=== PATIENT | male | born 1990 | race Caucasian/White ===

== ENCOUNTER 2022-10-22 12:46 | Inpatient (IN) | payer MEDICAID ==
[~2022-10-22] VITALS: Ht 167.6 cm; Wt 61.7 kg
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
--- NOTE | 2022-10-22 13:15 | NUR ---
ACCUCHECK 388
[2022-10-22] MEDS ORDERED: IV NS 0.9% 1,000 ML IV ONE (13:30)
[2022-10-22 13:35] LABS: BASOPHILS % (AUTO) 0.2 % (0.0-2.0); HEMATOCRIT 47 % (39-51); HEMOGLOBIN 15.9 g/dL (13.5-17.5); LYMPHOCYTES # (AUTO) 1.6 K/uL (0.8-4.8); LYMPHOCYTES % (AUTO) 9.1 % (20.0-44.0); MEAN CORPUSCULAR HGB CONC 34 g/dl (31.0-36.0); MEAN CORPUSCULAR VOLUME 92 fL (80-96); MONOCYTES # (AUTO) 0.5 K/uL (0.1-1.30); MONOCYTES % (AUTO) 3.1 % (2.0-12.0); NEUTROPHILS # (AUTO) 15.2 K/uL (1.8-8.9); NEUTROPHILS % (AUTO) 87.6 % (43.0-81.0); PLATELET COUNT (AUTO) 440 K/uL (150-450); RED BLOOD CELL COUNT(AUTO) 5.13 MIL/uL (4.5-6.0); WHITE BLOOD COUNT (AUTO) 17.3 K/uL (4.3-11.0)
[2022-10-22 13:49] LABS: ALANINE AMINOTRANSFERASE 49 U/L (12-78); ALBUMIN 4.4 g/dL (3.4-5.0); ALCOHOL, BLOOD < 3 mg/dL (0-10); ALKALINE PHOSPHATASE 115 U/L (46-116); ASPARTATE AMINOTRANSFERASE 19 U/L (15-37); BILIRUBIN,TOTAL 0.8 mg/dL (0.2-1.0); CALCIUM, SERUM 9.6 mg/dL (8.5-10.1); CHLORIDE 98 mmol/L (98-107); GLUCOSE 397 mg/dL (74-106); POTASSIUM 3.5 mmol/L (3.5-5.1); SODIUM SERUM 138 mmol/L (136-145); TOTAL PROTEIN, SERUM 8.9 g/dL (6.4-8.2); UREA NITROGEN, BLOOD 21 mg/dL (7-18)
[2022-10-22 13:56] LABS: CARBON DIOXIDE 6 mmol/L (21-32)
[2022-10-22] MEDS ORDERED: IV PREMIX NS +20MEQ KCL 1 L IV PRN (14:30)
[2022-10-22] MEDS ORDERED: INSU100I26 SQ (14:46)
[2022-10-22] MEDS ORDERED: INSU100V27 SQ (14:46)
--- NOTE | 2022-10-22 14:56 | NUR ---
CALLED PHARM FOR MEDS
[2022-10-22 14:58] LABS: BILIRUBIN,URINE NEGATIVE (NEGATIVE); COLOR,URINE YELLOW (YELLOW); LEUKOCYTE ESTERASE ,URINE NEGATIVE (NEGATIVE); NITRITE, URINE NEGATIVE (NEGATIVE); PROTEIN,URINE 1+ mg/dl (NEGATIVE); UGLUCOSE 2+ mg/dL (NEGATIVE); UROBILINOGEN,URINE 0.2 EU/dL (0.2)
[2022-10-22] MEDS ORDERED: INSULIN REGULAR, HUMAN 100 UNITS in IV NS 0.9% 100 ML IV PRN ×2 (15:00)
[2022-10-22 15:05] LABS: ABG BASE EXCESS -21.6 mmol/L; ABG OXYGEN SATURATION 97.7 % (92.0-98.5); ABG PCO2 11.2 mmHg (35.0-45.0); ABG PH 7.169 (7.350-7.450); COHb 0.7 % (0.5-1.5); MetHb 0.4 % (0.0-1.5); O2Hb 96.6 % (94.0-97.0); SITE, ABG Right Brachial; VENT MODE, BG Room Air
--- NOTE | 2022-10-22 15:18 | NUR ---
MOVE PACKET SUBMITTED, NURSING RECORD MAKER MADE AWARE PT NEEDS ICU BED
[2022-10-22 15:32] LABS: CALCIUM, SERUM 8.8 mg/dL (8.5-10.1); CREATININE 1.1 mg/dL (0.6-1.3); POTASSIUM 4.3 mmol/L (3.5-5.1)
[2022-10-22 15:35] LABS: MAGNESIUM 2.1 mg/dL (1.8-2.4); PHOSPHORUS 4.5 mg/dL (2.5-4.9)
[2022-10-22 15:36] LABS: BACTERIA,URINE None seen /HPF (None Seen); MUCUS,URINE Few /LPF (None Seen); RBC,URINE 0-2 /HPF (0-2); SQUAMOUS EPITHELIAL CELL,UR None Seen /HPF (None Seen); WBC,URINE NONE SEEN /HPF (0-3)
[2022-10-22] MEDS: INS (REG) DRIP 100 U/100 ML NS IV PRN ×4 (15:59→21:55)
--- NOTE | 2022-10-22 16:15 | NUR ---
[facility] - [phone]
[2022-10-22 16:40] LABS: CALCIUM, SERUM 8.8 mg/dL (8.5-10.1); CREATININE 1.2 mg/dL (0.6-1.3); POTASSIUM 4.4 mmol/L (3.5-5.1)
[2022-10-22 16:44] LABS: MAGNESIUM 2.1 mg/dL (1.8-2.4); PHOSPHORUS 4.4 mg/dL (2.5-4.9)
--- NOTE | 2022-10-22 16:44 | NUR ---
CO2 7.0, AWARE
[2022-10-22] MEDS ORDERED: HYDROCODONE/APAP 5/325MG TABLET PO PRN (17:30)
[2022-10-22] MEDS ORDERED: ACETAMINOPHEN 325 MG TABLET PO PRN (17:30)
[2022-10-22] MEDS ORDERED: MAGNESIUM HYDROXIDE 30 ML UDC PO PRN (17:30)
[2022-10-22] MEDS ORDERED: Z GUARD REMEDY 4 OZ OINT TP PRN (17:30)
[2022-10-22] MEDS ORDERED: ONDANSETRON HCL/PF 4 MG/2 ML VIAL IVP PRN (17:30)
[2022-10-22] MEDS ORDERED: ZOLPIDEM TARTRATE 5 MG TABLET PO PRN (17:30)
[2022-10-22] MEDS ORDERED: MAG HYDROX/AL HYDROX/SIMETH 30 ML UDC PO PRN (17:30)
--- NOTE | 2022-10-22 18:34 | NUR ---
URINE SAMPLE OBTAINED
[2022-10-22 19:04] LABS: CREATININE 1.1 mg/dL (0.6-1.3); MAGNESIUM 2.4 mg/dL (1.8-2.4); PHOSPHORUS 3.7 mg/dL (2.5-4.9); POTASSIUM 4.2 mmol/L (3.5-5.1)
--- NOTE | 2022-10-22 19:36 | NUR ---
CO2 6.0,
[2022-10-22] MEDS: BLOOD SUGAR DIAGNOSTIC 1 EACH STRIP IN SCH ×4 (20:28→23:35)
--- NOTE | 2022-10-22 20:28 | NUR ---
Blood Glucose: 223
--- NOTE | 2022-10-22 20:36 | NUR ---
FATHER (JOHAN AKBAR) [phone]. CALL FOR UPDATES
[2022-10-22 20:42] LABS: CALCIUM, SERUM 9.1 mg/dL (8.5-10.1); CREATININE 1.1 mg/dL (0.6-1.3)
--- NOTE | 2022-10-22 20:43 | NUR ---
CO2 8.0,
--- NOTE | 2022-10-22 21:26 | NUR ---
BLOOD GLUCOSE: 192
--- NOTE | 2022-10-22 21:49 | NUR ---
ELEAZAR NARANJO MADE AWARE ABOUT THE LATEST SUGAR. HE ORDERED TO ADJUST THE RATE OF INSULIN AT 3U/HR. AND START 0.45%1L AT 150CC/HR.
[2022-10-22] MEDS: IV 1/2NS 1000 ML 1,000 ML IV PRN ×2 (22:02→22:03)
[2022-10-22] MEDS ORDERED: ENOXAPARIN SODIUM 40 MG/0.4 ML DISP.SYRIN SQ ONE (22:19)
[2022-10-22] MEDS: ENOXAPARIN SODIUM 40 MG/0.4 ML DISP.SYRIN SQ SCH (22:25)
--- NOTE | 2022-10-22 22:33 | NUR ---
BLOOD GLUCOSE: 186
--- NOTE | 2022-10-22 22:36 | NUR ---
ELEAZAR NARANJO MADE AWARE, MAINTAIN INSULIN RATE AT 3U/HR.
--- NOTE | 2022-10-22 23:35 | NUR ---
BLOOD GLUCOSE: 182
[2022-10-23] VITALS (22 sets, daily range): BP systolic 115–139; BP diastolic 64–86; TEMP 98.2–98.3; O2SAT 100
--- NOTE | 2022-10-23 00:26 | NUR ---
ICU ROOM 262
[2022-10-23] MEDS: BLOOD SUGAR DIAGNOSTIC 1 EACH STRIP IN SCH ×20 (00:33→20:59)
--- NOTE | 2022-10-23 00:33 | NUR ---
BLOOD GLUCOSE: 192
[2022-10-23 00:37] LABS: CALCIUM, SERUM 9.1 mg/dL (8.5-10.1)
--- NOTE | 2022-10-23 00:54 | NUR ---
CO2 9.0,
--- NOTE | 2022-10-23 01:25 | NUR ---
REPORT GIVEN TO PIA JAY (ICU)
--- NOTE | 2022-10-23 01:28 | NUR ---
BLOOD GLUCOSE : 213mg/dl
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
--- NOTE | 2022-10-23 02:09 | NUR ---
TRANSFERRED TO ICU VIA ACLS PROTOCOL
[2022-10-23] MEDS: INSULIN REGULAR, HUMAN 100 UNIT in IV NS 0.9% 99 ML IV PRN ×4 (02:26→14:48)
[2022-10-23] MEDS: IV 1/2NS 1000 ML 1,000 ML IV PRN (02:36)
[2022-10-23 05:27] LABS: BASOPHILS % (AUTO) 0.2 % (0.0-2.0); HEMATOCRIT 33 % (39-51); HEMOGLOBIN 11.1 g/dL (13.5-17.5); LYMPHOCYTES # (AUTO) 1.8 K/uL (0.8-4.8); LYMPHOCYTES % (AUTO) 15.6 % (20.0-44.0); MEAN CORPUSCULAR HGB CONC 34 g/dl (31.0-36.0); MEAN CORPUSCULAR VOLUME 92 fL (80-96); MONOCYTES # (AUTO) 0.8 K/uL (0.1-1.30); MONOCYTES % (AUTO) 7.4 % (2.0-12.0); NEUTROPHILS # (AUTO) 8.7 K/uL (1.8-8.9); NEUTROPHILS % (AUTO) 76.8 % (43.0-81.0); PLATELET COUNT (AUTO) 280 K/uL (150-450); RED BLOOD CELL COUNT(AUTO) 3.57 MIL/uL (4.5-6.0); WHITE BLOOD COUNT (AUTO) 11.4 K/uL (4.3-11.0)
[2022-10-23 05:37] LABS: CREATININE 0.5 mg/dL (0.6-1.3); PHOSPHORUS 1.2 mg/dL (2.5-4.9)
[2022-10-23 05:47] LABS: CALCIUM, SERUM 5.4 mg/dL (8.5-10.1); POTASSIUM 2.2 mmol/L (3.5-5.1)
[2022-10-23 05:48] LABS: MAGNESIUM 1.2 mg/dL (1.8-2.4)
--- NOTE | 2022-10-23 06:00 | NUR ---
RN NOTES NOTIFIED DNP ROSARIO NARANJO REGARDING LATEST POTASSIUM- 2.2, SODIUM- 121, MAGNESIUM- 1,2, PHOSPHORUS- 1.2 WITH NEW ORDER KDUR 40 MEQ PO NOW THE REPEAT KDUR 40 MEQ PO AFETR 4 HRS, POTASSIUM 40MEQ IV NOW, MAGNESIUM 2G IV NOW, 2 PACK NEUTRA PHOS, CHANGE IVF TO D5NS @ 150 ML/HR, START DIET CCHO NOTED AND CARRIED OUT.
[2022-10-23] MEDS ORDERED: POTASSIUM CHLORIDE 20 MEQ TAB.PRT.SR PO ONE (06:30)
[2022-10-23] MEDS: POTASSIUM CHLORIDE 20 MEQ TAB.PRT.SR PO SCH ×2 (06:30→11:09)
[2022-10-23] MEDS: Magnesium 1GM/D5W 100ML PREMIX 100 ML IV SCH ×2 (06:48→07:48)
[2022-10-23] MEDS: POTASSIUM CL. PREMIX PERIPHER. 50 ML IV SCH ×7 (06:49→23:20)
[2022-10-23] MEDS ORDERED: NEUTRA PHOS 1 POWD.PACKET PO ONE (07:00)
[2022-10-23] MEDS: IV D5/ 0.9% NACL 1,000 ML IV PRN ×3 (07:02→18:40)
--- NOTE | 2022-10-23 07:10 | NUR ---
ICU OPENING NOTE: RECEIVED PT IN BED. SLEEPING BUT EASILY AROUSABLE. ABLE TO MAKE NEEDS KNOWN. NO RESP DISTRESS NOTED. ON 2LPM VIA NC. ON INSULIN DRIP. BS CHECK Q1H. NO INFILTRATION NOTED. ON KCL AND MG SUPPLEMENT VIA. RFA 18G AND LAC 20G . PATENT AND INTACT. BED KEPT LOW AND LOCK FOR SAFETY, CALL LIGHT WITHIN REACH.
--- NOTE | 2022-10-23 07:49 | NUR ---
RN/ICU-KDUR 40 MEQ PO DOSE AT 0630 NOT GIVEN, THIS IS A DUPLICATE ORDER, DOSE WAS ALREADY GIVEN. TO BE REPEATED AT 1030(KDUR 40 MEQ PO)
[2022-10-23] MEDS: NICOTINE PATCH (14MG) 14 MG PATCH.TD24 TD SCH (08:39)
[2022-10-23] MEDS: PANTOPRAZOLE 40 MG VIAL IV SCH (08:39)
[2022-10-23 09:30] LABS: CALCIUM, SERUM 8.4 mg/dL (8.5-10.1); CREATININE 0.8 mg/dL (0.6-1.3); POTASSIUM 3.4 mmol/L (3.5-5.1)
--- NOTE | 2022-10-23 10:25 | NUR ---
HORTICULTURAL FARMWORKER NOTE: DR. LANCE AT BEDSIDE.
--- NOTE | 2022-10-23 14:25 | NUR ---
FINANCIAL INSTITUTION PRESIDENT NOTE: PRBC GIVEN ORDERED. 2RN VERIFICATION CHECKED ORDERED VIA DIALYSIS.
--- NOTE | 2022-10-23 15:52 | NUR ---
JOHAN ([facility]) [phone]
[2022-10-23] MEDS ORDERED: GLUCERNA 1.2 1,000 ML BOTTLE NG PRN (16:30)
[2022-10-23 18:13] LABS: CALCIUM, SERUM 8.2 mg/dL (8.5-10.1); CREATININE 0.5 mg/dL (0.6-1.3); POTASSIUM 2.9 mmol/L (3.5-5.1)
--- NOTE | 2022-10-23 19:10 | NUR ---
RN OPENING NOTES RECEIVED PATIENT ON BED, AWAKE ALERT AND VERBALLY RESPONSIVE, FAMILY MEMBER AT BEDSIDE. ON NASAL CANULA @ 2LPM SATING AT 100%. RESPIRATORY EVEN AND UNLABORED, NO SOB NOTED. AFEBRILE, NO S/S OF DISTRESS NOTED. NOTED WITH LEFT HAND # 20, RAC #18 PERIPHERAL LINE , FLUSHED WITH NS, NO S/S OF INFILTRATION NOTED. RUNNING WITH D5NS @ 150 ML/HR. INSULIN DRIP @ 2.87 UNIT/HR. ALL SAFETY PRECAUTION PROVIDED. BED IN LOWEST POSITION LOCKED. CALL LIGHT WITH IN REACH.
--- NOTE | 2022-10-23 19:11 | NUR ---
ROLLER MECHANIC CLOSING NOTE: PT IN BED. SLEEPING BUT EASILY AROUSABLE TO VERBAL AND TACTILE STIMULI. PT AOX4. ON 2LPM VIA N/C. 02SAT 100%. RFA 18G AND LAC 20G PATENT AND INTACT. ON INSULIN DRIP PER POLICY. NEEDS ATTENDED PROMPTLY, CALL LIGHT WITHIN REACH. BED KEPT LOW AND LOCK FOR SAFETY AND CONCERN.
[2022-10-23 20:29] LABS: CALCIUM, SERUM 8.1 mg/dL (8.5-10.1); CREATININE 0.6 mg/dL (0.6-1.3)
[2022-10-23 20:31] LABS: POTASSIUM 2.8 mmol/L (3.5-5.1)
[2022-10-23] MEDS ORDERED: DEXTROSE 50%-WATER 50 ML DISP.SYRIN IV PRN (21:00)
--- NOTE | 2022-10-23 21:00 | NUR ---
RN NOTES NOTIFIED DNP ROSARIO NARANJO, REGARDING LATEST ANION GAP- 13 AND POTASSIUM - 2.8 WITH NEW ORDER DC INSULIN DRIP, START ACHS MODERATE SLIDING SCALE, LANTUS 12 UNITS QHS, CHANGED IVF TO NS @ 75ML/HR AND REPLACED POTASSIUM WITH 80 MEQ IV NOTED AND CARRIED OUT
[2022-10-23] MEDS: IV NS 0.9% 1,000 ML IV PRN (21:15)
[2022-10-23] MEDS: ENOXAPARIN SODIUM 40 MG/0.4 ML DISP.SYRIN SQ SCH (21:25)
[2022-10-23] MEDS ORDERED: INSULIN GLARGINE, 100 UNIT/ML CARTRIDGE SQ SCH (22:00)
[2022-10-23] MEDS: BLOOD SUGAR DIAGNOSTIC 1 EACH STRIP VI SCH (22:32)
[2022-10-23] MEDS: *INSULIN REGULAR(HUMULIN R)HUM 100 UNIT/ML VIAL SQ PRN (22:35)
[2022-10-24] VITALS (15 sets, daily range): BP systolic 105–130; BP diastolic 56–82; TEMP 98.1–99.5; O2SAT 98–100
[2022-10-24] MEDS: POTASSIUM CL. PREMIX PERIPHER. 50 ML IV SCH ×7 (00:24→23:04)
--- NOTE | 2022-10-24 03:46 | NUR ---
RN NOTES NOTED WITH NAUSEA AND VOMOTING, ZOFRAN 4MG IV GIVEN.
[2022-10-24 04:39] LABS: BASOPHILS % (AUTO) 0.5 % (0.0-2.0); HEMATOCRIT 40 % (39-51); HEMOGLOBIN 13.8 g/dL (13.5-17.5); LYMPHOCYTES % (AUTO) 19.5 % (20.0-44.0); MEAN CORPUSCULAR HGB CONC 34 g/dl (31.0-36.0); MEAN CORPUSCULAR VOLUME 90 fL (80-96); MONOCYTES # (AUTO) 0.9 K/uL (0.1-1.30); MONOCYTES % (AUTO) 8.5 % (2.0-12.0); NEUTROPHILS # (AUTO) 7.5 K/uL (1.8-8.9); NEUTROPHILS % (AUTO) 71.5 % (43.0-81.0); PLATELET COUNT (AUTO) 203 K/uL (150-450); RED BLOOD CELL COUNT(AUTO) 4.46 MIL/uL (4.5-6.0); WHITE BLOOD COUNT (AUTO) 10.5 K/uL (4.3-11.0)
[2022-10-24 04:49] LABS: CALCIUM, SERUM 8.3 mg/dL (8.5-10.1); CREATININE 0.5 mg/dL (0.6-1.3); PHOSPHORUS 1.9 mg/dL (2.5-4.9); POTASSIUM 3.4 mmol/L (3.5-5.1)
--- NOTE | 2022-10-24 07:30 | NUR ---
OPENING NOTE: REPORT RECEIVED FROM PIERRE PALACIO. ORDERS AND LABS REVIEWED DURING REPORT. PER REPORT INSULIN GTT DC'D LAST NIGHT. PT IS AWAKE, WEAK, OX4. PT ABLE TO MOVE IN BED BY SELF. ABLE TO USE URINAL WITHOUT DIFFICULTY. PT CHECKED ON HOURLY AND PRN BY NURSING STAFF.
[2022-10-24] MEDS: NICOTINE PATCH (14MG) 14 MG PATCH.TD24 TD SCH (08:37)
[2022-10-24] MEDS: PANTOPRAZOLE 40 MG VIAL IV SCH (08:37)
[2022-10-24] MEDS: BLOOD SUGAR DIAGNOSTIC 1 EACH STRIP VI SCH ×4 (08:37→22:19)
[2022-10-24] MEDS: INSULIN REGULAR, HUMAN 100 UNIT/ML 3 ML VIAL SQ PRN ×3 (08:40→17:17)
[2022-10-24] MEDS ORDERED: POTASSIUM CHLORIDE 20 MEQ POWDER PACKET GT ONE (10:00)
[2022-10-24] MEDS ORDERED: POTASSIUM CHLORIDE 20 MEQ POWDER PACKET PO ONE ×3 (10:00→14:38)
[2022-10-24] MEDS: IV NS 0.9% 1,000 ML IV PRN (10:38)
[2022-10-24] MEDS: INSULIN ASPART/LISPRO 100 UNIT/ML CARTRIDGE SQ SCH ×2 (12:25→17:09)
--- NOTE | 2022-10-24 12:50 | NUR ---
ICU BEDSIDE REPORT TO ANJU MENDOZA RN FOR PT TRANSFER TO TELE ROOM 114. ALL BELONGINGS AND MEDS SENT WITH PATIENT.
--- NOTE | 2022-10-24 12:58 | NUR ---
RECEIVED REPORT FROM RAEGAN PALACIO FOR SHARON. PATIENT FROM ICU TRANSFER TO ROOM 114-1 TELEMETRY. GF AT THE BEDSIDE. PATIENT IS ALERT AND VERBALLY RESPONSIVE. DENIES ANY PAIN AT THIS MOMENT. PT AOX4. ON 2LPM VIA N/C. 02SAT >95%. RFA 18G AND LAC 20G PATENT AND INTACT, FLUSHES WELL WITH NS RUNNING AT 75ML/HR. ON TELE MONITOR SR. SAFETY MEASURES IN PLAED. CALL LIGHT WITHIN REACH. BED KEPT LOW AND LOCK FOR SAFETY AND CONCERN. WILL CONTINUE PLAN OF CARE
[2022-10-24] MEDS ORDERED: NEUTRA PHOS 1 POWD.PACKET PO ONE (15:00)
--- NOTE | 2022-10-24 18:25 | NUR ---
RN LACTATION CONSULTANT CLOSING NOTES PT IN BED AWAKE, FAMILY AT THE BEDSIDE. PT AOX4. ON ROOM AIR, TOLERTING WELL, 02SAT >95%. RFA 18G AND LAC 20G PATENT AND INTACT WITH NS RUNNING AT 75ML/HR. CALL LIGHT WITHIN REACH. BED KEPT LOW AND LOCK FOR SAFETY AND CONCERN. ON TELE MONITOR SR. WILL ENDORSE TO NIGHT NURSE FOR SHARON.
--- NOTE | 2022-10-24 19:30 | NUR ---
NOC RN OPENING NOTE RECEIVED PATIENT IN BED A/OX3-4, NO S/S OF APPARENT DISTRESS IN ROOM AIR, BREATHING EVEN AND UNLABORED. PATIENT READING SR IN THE THE MONITOR AT THIS TIME 78BPM. PATIENT HS 2 IV ACCESS ON R.AC #18G RUNNING NS@75MLS/HR AND L. HAND #20G ON SALINE LOCK. SAFETY IN PLACE-- BED IN LOWEST, LOCKED POSITION, SIDE RAILS UP X2, CALL LIGHT WITHIN REACH, BED ALARM IN PLACE. WILL CONTINUE WITH PATIENT'S PLAN OF CARE.
[2022-10-24 20:43] LABS: CALCIUM, SERUM 8.7 mg/dL (8.5-10.1); CREATININE 0.5 mg/dL (0.6-1.3)
[2022-10-24 20:48] LABS: POTASSIUM 2.8 mmol/L (3.5-5.1)
[2022-10-24] MEDS ORDERED: POTASSIUM CHLORIDE 10 MEQ/50 ML PREMIXED IVPB FOR PERIPHERAL LINE IV ONE (21:30)
[2022-10-24] MEDS: ENOXAPARIN SODIUM 40 MG/0.4 ML DISP.SYRIN SQ SCH (21:34)
[2022-10-24] MEDS ORDERED: INSULIN GLARGINE, 100 UNIT/ML CARTRIDGE SQ SCH (22:00)
[2022-10-24] MEDS ORDERED: POTASSIUM CHLORIDE 20 MEQ TAB.PRT.SR PO ONE (22:00)
[2022-10-24] MEDS: *INSULIN REGULAR(HUMULIN R)HUM 100 UNIT/ML VIAL SQ PRN (22:24)
[2022-10-25] VITALS: BP 119/67; TEMP 99; O2SAT 99
[2022-10-25 04:00] VITALS: BP 106/53; TEMP 99.2; O2SAT 98
[2022-10-25 05:46] LABS: BASOPHILS % (AUTO) 0.4 % (0.0-2.0); HEMATOCRIT 38 % (39-51); LYMPHOCYTES # (AUTO) 2.1 K/uL (0.8-4.8); LYMPHOCYTES % (AUTO) 32.3 % (20.0-44.0); MEAN CORPUSCULAR HGB CONC 35 g/dl (31.0-36.0); MEAN CORPUSCULAR VOLUME 89 fL (80-96); MONOCYTES # (AUTO) 0.6 K/uL (0.1-1.30); MONOCYTES % (AUTO) 9.5 % (2.0-12.0); NEUTROPHILS # (AUTO) 3.7 K/uL (1.8-8.9); NEUTROPHILS % (AUTO) 57.8 % (43.0-81.0); PLATELET COUNT (AUTO) 255 K/uL (150-450); RED BLOOD CELL COUNT(AUTO) 4.24 MIL/uL (4.5-6.0); WHITE BLOOD COUNT (AUTO) 6.4 K/uL (4.3-11.0)
[2022-10-25 06:04] LABS: CALCIUM, SERUM 8.5 mg/dL (8.5-10.1); CREATININE 0.5 mg/dL (0.6-1.3); MAGNESIUM 1.8 mg/dL (1.8-2.4); POTASSIUM 3.3 mmol/L (3.5-5.1)
[2022-10-25] MEDS: BLOOD SUGAR DIAGNOSTIC 1 EACH STRIP VI SCH ×2 (06:39→11:41)
[2022-10-25] MEDS: INSULIN REGULAR, HUMAN 100 UNIT/ML 3 ML VIAL SQ PRN (06:40)
--- NOTE | 2022-10-25 07:02 | NUR ---
NOC RN NOTE CLOSING NOTE PATIENT IN BED, A/OX4. TOLERATING FULL LIQUIDS DIET. NO S/S OF APPARENT DISTRESS IN ROOM AIR, BREATHING EVEN AND UNLABORED. NO C/O PAIN. IV NS RUNNING @75MLS/HR. READING SR WITH 82 BPM AT THIS TIME. ALL NEEDS ATTENDED. ALL SCHEDULED MEDICATIONS ADMINISTERED. SAFETY KEPT IN PLACE THROUGHOUT SHIFT. WILL ENDORSE TO MORNING SHIFT RN FOR CONTINUITY OF PATIENT CARE.
--- NOTE | 2022-10-25 07:25 | NUR ---
RN OPENING NOTE RECEIVED PATIENT IN BED A/OX3-4, NO S/S OF APPARENT DISTRESS IN ROOM AIR, BREATHING EVEN AND UNLABORED. PATIENT READING SR IN THE THE MONITOR AT THIS TIME 82 BPM. PATIENT HS 2 IV ACCESS ON R.AC #18G RUNNING NS@75MLS/HR AND L. HAND #20G ON SALINE LOCK. SAFETY IN PLACE-- BED IN LOWEST, LOCKED POSITION, SIDE RAILS UP X2, CALL LIGHT WITHIN REACH, BED ALARM IN PLACE. WILL CONTINUE WITH PATIENT'S PLAN OF CARE.
[2022-10-25] MEDS: INSULIN ASPART/LISPRO 100 UNIT/ML CARTRIDGE SQ SCH ×2 (07:38→12:18)
[2022-10-25 08:00] VITALS: BP 120/72; TEMP 99.2; O2SAT 98
[2022-10-25] MEDS ORDERED: POTASSIUM CHLORIDE 20 MEQ POWDER PACKET PO ONE (08:00)
[2022-10-25] MEDS ORDERED: NEUTRA PHOS 1 POWD.PACKET NG ONE (08:00)
[2022-10-25] MEDS ORDERED: PANTOPRAZOLE 40 MG/PACK PACK PO SCH (09:00)
[2022-10-25] MEDS: NICOTINE PATCH (14MG) 14 MG PATCH.TD24 TD SCH (09:03)
[2022-10-25 12:00] VITALS: BP 135/75; TEMP 98.4; O2SAT 98
[2022-10-25] MEDS: *INSULIN REGULAR(HUMULIN R)HUM 100 UNIT/ML VIAL SQ PRN (12:01)
--- NOTE | 2022-10-25 12:45 | NUR ---
RN note Patient is at stable health condition , discharge order recived . discharge instructions provided to the patient and careers adviser verbally and in written.Patient an d PCG verbalized understanding .
== END 2022-10-25 14:00 | disposition home or self-care (01) | DRG 420 ==
LOC: ER 13:02 → TRANSITION 20:41 → ICU 10-23 01:08 → TELE1 10-24 12:49
PROVIDERS: ADMIT Student in an Organized Health Care Education/Training Program; ATTEND Student in an Organized Health Care Education/Training Program
DX: E10.10 Type 1 diabetes mellitus with ketoacidosis without coma (principal); D64.9 Anemia, unspecified; E86.0 Dehydration; F11.10 Opioid abuse, uncomplicated; D72.829 Elevated white blood cell count, unspecified; E87.6 Hypokalemia; F17.210 Nicotine dependence, cigarettes, uncomplicated; Z79.4 Long term (current) use of insulin; Z91.199 Patient's noncompliance with other medical treatment and regimen due to unspecified reason; E87.1 Hypo-osmolality and hyponatremia; R53.1 Weakness
CPT/HCPCS: 36415; 36600; 80048-TC; 80053-TC; 81001; 82010-TC; 82803-TC; 82962-TC; 83735-TC; 84100-TC; 85025-TC; A4223; C9113; G0378; G0480; J1650; J1815; J2405; J3475; J3480; J3490; J7030; J7042

== ENCOUNTER 2023-09-21 07:51 | Inpatient (IN) | payer MEDICAID, OTHER ==
[~2023-09-21] VITALS: Ht 170.2 cm; Wt 70.3 kg
[~2023-09-21 07:51] MED LIST: INSU100I26 SQ; INSU100V27 SQ
[2023-09-21 08:13] LABS: BASOPHILS % (AUTO) 0.4 % (0.0-2.0); EOSINOPHILS % (AUTO) 0.1 % (0.0-6.0); HEMATOCRIT 47 % (39-51); HEMOGLOBIN 16.4 g/dL (13.5-17.5); LYMPHOCYTES % (AUTO) 16.5 % (20.0-44.0); MEAN CORPUSCULAR HEMOGLOBIN 30 PG (26.0-33.0); MEAN CORPUSCULAR HGB CONC 35 g/dl (31.0-36.0); MEAN CORPUSCULAR VOLUME 86 fL (80-96); MONOCYTES # (AUTO) 0.4 K/uL (0.1-1.30); NEUTROPHILS # (AUTO) 9.7 K/uL (1.8-8.9); PLATELET COUNT (AUTO) 313 K/uL (150-450); RED BLOOD CELL COUNT(AUTO) 5.45 MIL/uL (4.5-6.0); RED CELL DISTRIBUTION WIDTH 12.8 % (11.5-15.0); WHITE BLOOD COUNT (AUTO) 12.1 K/uL (4.3-11.0)
[2023-09-21 09:18] LABS: CALCIUM, SERUM 9.4 mg/dL (8.5-10.1); CARBON DIOXIDE 23 mmol/L (21-32); CHLORIDE 99 mmol/L (98-107); CREATININE 0.7 mg/dL (0.6-1.3); GLUCOSE 244 mg/dL (74-106); POTASSIUM 3.3 mmol/L (3.5-5.1); SODIUM SERUM 137 mmol/L (136-145); UREA NITROGEN, BLOOD 20 mg/dL (7-18)
[2023-09-21 09:24] LABS: ACETAMINOPHEN <10 ug/ml (10-30); ALANINE AMINOTRANSFERASE 64 U/L (12-78); ALBUMIN 3.6 g/dL (3.4-5.0); ALCOHOL, BLOOD < 3 mg/dL (0-10); ALKALINE PHOSPHATASE 108 U/L (46-116); ASPARTATE AMINOTRANSFERASE 28 U/L (15-37); BILIRUBIN,DIRECT 0.1 mg/dL (0.0-0.2); BILIRUBIN,TOTAL 0.7 mg/dL (0.2-1.0); TOTAL PROTEIN, SERUM 7.8 g/dL (6.4-8.2)
[2023-09-21] MEDS ORDERED: BUPR1FIL19 SL (10:29)
[2023-09-21 10:42] LABS: APPEARANCE,URINE Clear (CLEAR); BILIRUBIN,URINE Negative (NEGATIVE); BLOOD, URINE Negative Ery/uL (NEGATIVE); COLOR,URINE YELLOW (YELLOW); KETONES,URINE Negative (NEGATIVE); LEUKOCYTE ESTERASE ,URINE Negative (NEGATIVE); NITRITE, URINE Negative (NEGATIVE); PROTEIN,URINE Negative (NEGATIVE); UGLUCOSE Negative (NEGATIVE); UROBILINOGEN,URINE 0.2 EU/dL (0.2)
[2023-09-21 10:53] LABS: BARBITURATE, URINE NEGATIVE (NEGATIVE); CANNABINOID, URINE NEGATIVE (NEGATIVE); COCCAINE, URINE NEGATIVE (NEGATIVE); OPIATE, URINE NEGATIVE (NEGATIVE); PHENCYCLIDINE SCREEN,URINE NEGATIVE (NEGATIVE)
[2023-09-21 10:56] LABS: AMPHETAMINE, URINE POSITIVE (NEGATIVE); BENZODIAZEPINE, URINE POSITIVE (NEGATIVE)
[2023-09-21 12:00] VITALS: BP 122/65; TEMP 97.8; O2SAT 99
[2023-09-21 12:10] VITALS: BP 122/65; TEMP 97.8; O2SAT 99
[2023-09-21] MEDS ORDERED: Z GUARD REMEDY 4 OZ OINT TP PRN (15:30)
[2023-09-21] MEDS ORDERED: ONDANSETRON HCL/PF 4 MG/2 ML VIAL IVP PRN (15:30)
[2023-09-21 16:00] VITALS: BP 129/65; TEMP 99.3; O2SAT 99
[2023-09-21] MEDS: HYDROMORPHONE 1 MG/1 ML DISP.SYRIN IV ONE (16:17)
[2023-09-21] MEDS: MULTIVITAMINS,THERAGRAN 1 UDTAB TABLET PO SCH (16:17)
[2023-09-21] MEDS: FOLIC ACID 1 MG TABLET PO SCH (16:17)
[2023-09-21] MEDS: POTASSIUM CHLORIDE 20 MEQ TAB.PRT.SR PO ONE (16:17)
[2023-09-21] MEDS: ENOXAPARIN SODIUM 40 MG/0.4 ML DISP.SYRIN SQ SCH (16:18)
[2023-09-21] MEDS: BLOOD SUGAR DIAGNOSTIC 1 EACH STRIP IN SCH (16:40)
[2023-09-21] MEDS: INSULIN ASPART/LISPRO 100 UNIT/ML CARTRIDGE SQ SCH (17:38)
[2023-09-21 18:00] VITALS: BP 102/56; TEMP 97.1; O2SAT 100
[2023-09-21] MEDS: IV NS 0.9% 1,000 ML IV PRN (18:23)
[2023-09-21] MEDS: ACETAMINOPHEN 325 MG TABLET PO PRN (18:24)
[2023-09-21] MEDS ORDERED: BUPRENORPHINE HCL 2 MG TAB.SUBL SL PRN (19:00)
[2023-09-21 20:00] VITALS: BP 126/76; TEMP 100.2; O2SAT 99
[2023-09-21] MEDS: INSULIN GLARGINE, 100 UNIT/ML CARTRIDGE SQ SCH (21:19)
[2023-09-22 04:00] VITALS: BP 130/63; TEMP 98.6; O2SAT 99
[2023-09-22 06:44] LABS: BASOPHILS # (AUTO) 0.1 K/uL (0.0-0.2); BASOPHILS % (AUTO) 0.5 % (0.0-2.0); HEMATOCRIT 41 % (39-51); HEMOGLOBIN 14.7 g/dL (13.5-17.5); LYMPHOCYTES # (AUTO) 1.9 K/uL (0.8-4.8); LYMPHOCYTES % (AUTO) 20.3 % (20.0-44.0); MEAN CORPUSCULAR HEMOGLOBIN 31 PG (26.0-33.0); MEAN CORPUSCULAR HGB CONC 36 g/dl (31.0-36.0); MEAN CORPUSCULAR VOLUME 86 fL (80-96); MONOCYTES # (AUTO) 0.8 K/uL (0.1-1.30); MONOCYTES % (AUTO) 8.5 % (2.0-12.0); NEUTROPHILS # (AUTO) 6.8 K/uL (1.8-8.9); NEUTROPHILS % (AUTO) 70.7 % (43.0-81.0); PLATELET COUNT (AUTO) 287 K/uL (150-450); RED BLOOD CELL COUNT(AUTO) 4.78 MIL/uL (4.5-6.0); WHITE BLOOD COUNT (AUTO) 9.6 K/uL (4.3-11.0)
[2023-09-22 07:04] LABS: CALCIUM, SERUM 8.5 mg/dL (8.5-10.1); CREATININE 0.5 mg/dL (0.6-1.3); PHOSPHORUS 3.3 mg/dL (2.5-4.9); POTASSIUM 3.5 mmol/L (3.5-5.1)
[2023-09-22 08:00] VITALS: BP 109/60; TEMP 98.6; O2SAT 100
[2023-09-22] MEDS: BUPRENORPHINE HCL 8 MG TAB.SUBL SL SCH ×2 (09:33→12:45)
== END 2023-09-22 15:54 | disposition home or self-care (01) | DRG 422 ==
LOC: ER 08:27 → MEDSG1 11:35
PROVIDERS: ADMIT Nurse Practitioner Acute Care; ATTEND Nurse Practitioner Acute Care
DX: E86.0 Dehydration (principal); D72.829 Elevated white blood cell count, unspecified; E10.65 Type 1 diabetes mellitus with hyperglycemia; F11.93 Opioid use, unspecified with withdrawal; E87.6 Hypokalemia; F17.210 Nicotine dependence, cigarettes, uncomplicated; Z79.4 Long term (current) use of insulin; R11.2 Nausea with vomiting, unspecified
CPT/HCPCS: 36415; 80048-TC; 80061-TC; 80076-TC; 82962-TC; 83735-TC; 84100-TC; 85025-TC; A4223; G0378; G0480; J1170; J1650; J1815; J7030